=== PATIENT | male | born 1985 | race Caucasian/White ===

== ENCOUNTER 2016-03-30 18:44 | Emergency (ER) | payer SELFPAY ==
--- NOTE | 2016-03-30 20:54 | DIAGNOSTIC IMAGING REPORT ---
PROCEDURE: XR CHEST 2 VIEW INDICATION: SHORTNESS OF BREATH, initial encounter TECHNIQUE: PA and lateral view. COMPARISON: Chest x-ray 10/13/2015 FINDINGS: Lungs are clear. Cardiovascular structures are normal. Bony thorax is unremarkable. No significant interval change. IMPRESSION: 1. Negative chest.
--- NOTE | 2016-03-30 21:01 | ED ORDER SUMMARY ---
..... Patient: ROSAURA HOGAN OrderSheet [facility] VisitID: [id number] [address] [place] [address] 31y, M Registration Date/Time: 03/30/2016 ORDER SHEET Weight: 88.9 kg (stated) Allergies: No Known Drug Allergy GENERAL ORDERS: Chest 2V Urgent (20:36 03/30/2016 Maggy WEISS) (20:41 [place]) MEDICATION ORDERS: IV FLUIDS: ORDER SHEET NOTES: [Electronically signed by Raymon Vaughn R.N. (21:06 03/30/2016)] [Electronically signed by Edvin Sears MD (23:23 04/01/2016)] [Electronically locked/signed by Raymon Vaughn R.N. (21:06 03/30/2016)]
--- NOTE | 2016-03-30 21:01 | ED NURSING NOTES ---
Clinical Report - Nurses [facility] [place] [address] 03/30/2016 18:45 Patient: ROSAURA HOGAN TRIAGE Triage time 19:24. Acuity: LEVEL 4. Chief Complaint: SHORTNESS OF BREATH and COUGH. 19:28. Alert. SEPSIS SCREEN: Sepsis Screen. Negative (no infection suspected/documented). --19:28 Maxim Portillo R.N. 19:24 03/30/16. BP: 125/78. HR: 79. RR: 17. O2 saturation: 100% on room air. Temp: 97.8 F (oral). Pain level now: 0/10. --19:28 Maxim Portillo R.N. Acuity: LEVEL 3. Chief Complaint: SHORTNESS OF BREATH. --19:36 Raymon Vaughn R.N. Weight: 88.9 kg stated. Height/Length: 73 inches Per Patient. BMI: 25.9. --19:27 Maxim Portillo R.N. Medications Albuterol Sulfate Inhalation 2 puffs, PRN. --19:26 Maxim Portillo R.N. Allergies No Known Drug Allergy. --19:26 Maxim Portillo R.N. Medication/allergy information source: the patient. --19:28 Maxim Portillo R.N. Medication/allergy information source: the patient. --19:36 Raymon Vaughn R.N. History Arrived by private vehicle. Historian: patient. Accompanied by friend. Primary physician (Stu). Onset. (Friday). 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 PAST MEDICAL HX: Immunizations: up-to-date. SOCIAL HX: Never smoker. Occasional alcohol use. History of occasional drug use: marijuana. No infectious disease exposure. ABUSE ASSESSMENT: No report of abuse. FALL RISK ASSESSMENT: Fall risk assessment completed. No fall risk identified. NUTRITIONAL RISK ASSESSMENT: The nutritional risk assessment revealed no deficiencies. FUNCTIONAL ASSESSMENT: Functional assessment: no impairments noted. LEARNING NEEDS ASSESSMENT: The learning needs assessment revealed no barriers. SKIN INTEGRITY ASSESSMENT: Skin integrity risk assessment completed. No skin integrity risk identified. --19:28 Maxim Portillo R.N. ( Pt has been having sob for the past few days. Pt feels like there is mucus in the back of his throat.). 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 PAST MEDICAL HX: Immunizations: (no). SOCIAL HX: Occasional alcohol use; consumes beer occasionally. No drug use. --19:36 Raymon Vaughn R.N. PROBLEMS: Dyspnea. --19:36 Raymon Vaughn R.N. ADDITIONAL SURGERIES: Appendectomy. --19:27 Maxim Portillo R.N. Interventions ID band on patient. To waiting room. --19:28 Maxim Portillo R.N. ID band on patient. To treatment room. --19:36 Raymon Vaughn R.N. PHYSICAL ASSESSMENT ( Pt was sob a few months ago and said it was possibly asthma.). GENERAL / NEURO / PSYCH: Alert. Oriented X 4. Appears anxious. HEENT: Mucous membranes are pink. RESPIRATORY: No respiratory distress. Respirations not labored. Chest nontender. Breath sounds within normal limits. ( Pt is having sob for the past few days, but has bilateral clear lung sounds. pt appears anxious but with non labored breathing.). CVS: Normal sinus rhythm noted. Capillary refill less than 2 seconds. GI / : Abdomen soft and nontender. Bowel sounds within normal limits. SKIN: Skin is warm and dry. Normal skin turgor. --19:38 Raymon Vaughn R.N. NURSING PROGRESS NOTES The plan of care for this patient has been created. Head of bed elevated. Reassurance given. Two patient identifiers checked. Call light placed in reach. Side rails up x 1. Bed placed in lowest position. Brakes of chair on. --19:39 Raymon Vaughn R.N. 19:38 03/30/16. BP: 117/78. HR: 68. RR: 15. O2 saturation: 100%. Pain level now 0/10. --19:39 Raymon Vaughn R.N. DISPOSITION / DISCHARGE Departure time: 2104. Condition at departure: improved. ( Pt is no longer feeling sob). No learning barriers present. Discharge instructions provided and reviewed with the patient. Reviewed referrals (Dr Moore). Patient verbalized understanding. Written instructions provided in Romanian. The patient was discharged by the physician. He was discharged home and accompanied by softball player. He left the Emergency Department ambulatory and via private vehicle. Financial Services Officer driving. --21:06 Raymon Vaughn R.N. 21:05 03/30/16. BP: 124/75. HR: 81. RR: 14. O2 saturation: 100%. Pain level now 0/10. --21:06 Raymon Vaughn R.N. Locked/Released at 03/30/2016 21:06 by Raymon Vaughn R.N.
--- NOTE | 2016-03-30 21:01 | ED CLINICAL REPORT ---
Clinical Report - Physicians/Mid Levels [facility] [address] [place] [address] 03/30/2016 18:45 Patient: ROSAURA HOGAN Time Seen: 20:23. Arrived- By private vehicle. Historian- patient. HISTORY OF PRESENT ILLNESS Chief Complaint: DYSPNEA. This started 3 - 4 days ago; Centered on neck. and is still present and worsening. It has been waxing/waning. The dyspnea is described as moderate. No cough, fever, chills, dyspnea on exertion or chest pain. He has had moderate anxiety and dizziness. He has had new onset of tingling, (when nervous.). Similar symptoms previously: ( 6 MONTHS SIMILAR). REVIEW OF SYSTEMS No eye irritation, sore throat, nasal discharge, sinus drainage or nausea. No abdominal pain, diarrhea or difficulty with urination. PAST HISTORY PCP: Stu MOORE PROBLEMS: Dyspnea. --19:36 Raymon Vaughn R.N. ADDITIONAL SURGERIES: Appendectomy. SOCIAL HISTORY Former smoker. ADDITIONAL NOTES The nursing notes have been reviewed. PHYSICAL EXAM Vital Signs: 03/30/2016 19:38 BP: 117/78. HR: 68. RR: 15. O2 saturation: 100%. 03/30/2016 19:24 BP: 125/78. HR: 79. RR: 17. O2 saturation: 100%. Temp: 97.8 F. Pain level now: 0/10. Appearance: Alert. No acute distress. Anxious. Eyes: Eyes normal inspection. ENT: Pharynx normal. Neck: Normal inspection. No jugular venous distention. CVS: Normal heart rate and rhythm. Heart sounds normal. Respiratory: No respiratory distress. Breath sounds normal. Abdomen: Soft and nontender. Back: Normal inspection. Skin: Skin warm. Normal skin color. No rash. Extremities: Extremities exhibit normal ROM. No lower extremity edema. LABS, X-RAYS, AND EKG Chest X-ray: (PROCEDURE: XR CHEST 2 VIEW INDICATION: SHORTNESS OF BREATH, initial encounter TECHNIQUE: PA and lateral view. COMPARISON: Chest x-ray 10/13/2015 FINDINGS: Lungs are clear. Cardiovascular structures are normal. Bony thorax is unremarkable. No significant interval change. IMPRESSION: 1. Negative chest. Electronically Final signed by:Johny Nunn MD 03/30/2016 8:54:05 PM Technologist: JUAN). PROGRESS AND PROCEDURES Course of Care: CXR and 02 sat are excellent. Exam is normal. CLINICAL IMPRESSION Dyspnea INSTRUCTIONS (NO DANGEROUS LUNG PROBLEMS FOUND ESTABLISH PRIMARY CARE IT IS OK TO WORK). Understanding of the discharge instructions verbalized by patient. Follow-up with: Guy Moore MD, [facility], , [facility], [address] [place] [address] Follow up. Reason for referral: ESTABLISH PRIMARY CARE. (Electronically signed by Edvin Sears MD 04/01/2016 23:23)
--- NOTE | 2016-03-30 21:01 | ED CLINICAL REPORT ---
Clinical Report - Physicians/Mid Levels [facility] [address] [place] [address] 03/30/2016 18:45 Patient: ROSAURA HOGAN Time Seen: 20:23. Arrived- By private vehicle. Historian- patient. HISTORY OF PRESENT ILLNESS Chief Complaint: DYSPNEA. This started 3 - 4 days ago; Centered on neck. and is still present and worsening. It has been waxing/waning. The dyspnea is described as moderate. No cough, fever, chills, dyspnea on exertion or chest pain. He has had moderate anxiety and dizziness. He has had new onset of tingling, (when nervous.). Similar symptoms previously: ( 6 MONTHS SIMILAR). REVIEW OF SYSTEMS No eye irritation, sore throat, nasal discharge, sinus drainage or nausea. No abdominal pain, diarrhea or difficulty with urination. PAST HISTORY PCP: Stu MOORE PROBLEMS: Dyspnea. --19:36 Raymon Vaughn R.N. ADDITIONAL SURGERIES: Appendectomy. SOCIAL HISTORY Former smoker. ADDITIONAL NOTES The nursing notes have been reviewed. PHYSICAL EXAM Vital Signs: 03/30/2016 19:38 BP: 117/78. HR: 68. RR: 15. O2 saturation: 100%. 03/30/2016 19:24 BP: 125/78. HR: 79. RR: 17. O2 saturation: 100%. Temp: 97.8 F. Pain level now: 0/10. Appearance: Alert. No acute distress. Anxious. Eyes: Eyes normal inspection. ENT: Pharynx normal. Neck: Normal inspection. No jugular venous distention. CVS: Normal heart rate and rhythm. Heart sounds normal. Respiratory: No respiratory distress. Breath sounds normal. Abdomen: Soft and nontender. Back: Normal inspection. Skin: Skin warm. Normal skin color. No rash. Extremities: Extremities exhibit normal ROM. No lower extremity edema. LABS, X-RAYS, AND EKG Chest X-ray: (PROCEDURE: XR CHEST 2 VIEW INDICATION: SHORTNESS OF BREATH, initial encounter TECHNIQUE: PA and lateral view. COMPARISON: Chest x-ray 10/13/2015 FINDINGS: Lungs are clear. Cardiovascular structures are normal. Bony thorax is unremarkable. No significant interval change. IMPRESSION: 1. Negative chest. Electronically Final signed by:Johny Nunn MD 03/30/2016 8:54:05 PM Technologist: JUAN). PROGRESS AND PROCEDURES Course of Care: CXR and 02 sat are excellent. Exam is normal. CLINICAL IMPRESSION Dyspnea INSTRUCTIONS (NO DANGEROUS LUNG PROBLEMS FOUND ESTABLISH PRIMARY CARE IT IS OK TO WORK). Understanding of the discharge instructions verbalized by patient. Follow-up with: Guy Moore MD, [facility], , [facility], [address] [place] [address] Follow up. Reason for referral: ESTABLISH PRIMARY CARE. (Electronically signed by Edvin Sears MD 04/01/2016 23:23)
--- NOTE | 2016-03-30 21:01 | ED ORDER SUMMARY ---
..... Patient: ROSAURA HOGAN OrderSheet [facility] VisitID: [id number] [address] [place] [address] 31y, M Registration Date/Time: 03/30/2016 ORDER SHEET Weight: 88.9 kg (stated) Allergies: No Known Drug Allergy GENERAL ORDERS: Chest 2V Urgent (20:36 03/30/2016 Maggy WEISS) (20:41 [place]) MEDICATION ORDERS: IV FLUIDS: ORDER SHEET NOTES: [Electronically signed by Raymon Vaughn R.N. (21:06 03/30/2016)] [Electronically signed by Edvin Sears MD (23:23 04/01/2016)] [Electronically locked/signed by Raymon Vaughn R.N. (21:06 03/30/2016)]
--- NOTE | 2016-03-30 21:01 | ED NURSING NOTES ---
Clinical Report - Nurses [facility] [place] [address] 03/30/2016 18:45 Patient: ROSAURA HOGAN TRIAGE Triage time 19:24. Acuity: LEVEL 4. Chief Complaint: SHORTNESS OF BREATH and COUGH. 19:28. Alert. SEPSIS SCREEN: Sepsis Screen. Negative (no infection suspected/documented). --19:28 Maxim Portillo R.N. 19:24 03/30/16. BP: 125/78. HR: 79. RR: 17. O2 saturation: 100% on room air. Temp: 97.8 F (oral). Pain level now: 0/10. --19:28 Maxim Portillo R.N. Acuity: LEVEL 3. Chief Complaint: SHORTNESS OF BREATH. --19:36 Raymon Vaughn R.N. Weight: 88.9 kg stated. Height/Length: 73 inches Per Patient. BMI: 25.9. --19:27 Maxim Portillo R.N. Medications Albuterol Sulfate Inhalation 2 puffs, PRN. --19:26 Maxim Portillo R.N. Allergies No Known Drug Allergy. --19:26 Maxim Portillo R.N. Medication/allergy information source: the patient. --19:28 Maxim Portillo R.N. Medication/allergy information source: the patient. --19:36 Raymon Vaughn R.N. History Arrived by private vehicle. Historian: patient. Accompanied by friend. Primary physician (Stu). Onset. (Friday). 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 PAST MEDICAL HX: Immunizations: up-to-date. SOCIAL HX: Never smoker. Occasional alcohol use. History of occasional drug use: marijuana. No infectious disease exposure. ABUSE ASSESSMENT: No report of abuse. FALL RISK ASSESSMENT: Fall risk assessment completed. No fall risk identified. NUTRITIONAL RISK ASSESSMENT: The nutritional risk assessment revealed no deficiencies. FUNCTIONAL ASSESSMENT: Functional assessment: no impairments noted. LEARNING NEEDS ASSESSMENT: The learning needs assessment revealed no barriers. SKIN INTEGRITY ASSESSMENT: Skin integrity risk assessment completed. No skin integrity risk identified. --19:28 Maxim Portillo R.N. ( Pt has been having sob for the past few days. Pt feels like there is mucus in the back of his throat.). 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 PAST MEDICAL HX: Immunizations: (no). SOCIAL HX: Occasional alcohol use; consumes beer occasionally. No drug use. --19:36 Raymon Vaughn R.N. PROBLEMS: Dyspnea. --19:36 Raymon Vaughn R.N. ADDITIONAL SURGERIES: Appendectomy. --19:27 Maxim Portillo R.N. Interventions ID band on patient. To waiting room. --19:28 Maxim Portillo R.N. ID band on patient. To treatment room. --19:36 Raymon Vaughn R.N. PHYSICAL ASSESSMENT ( Pt was sob a few months ago and said it was possibly asthma.). GENERAL / NEURO / PSYCH: Alert. Oriented X 4. Appears anxious. HEENT: Mucous membranes are pink. RESPIRATORY: No respiratory distress. Respirations not labored. Chest nontender. Breath sounds within normal limits. ( Pt is having sob for the past few days, but has bilateral clear lung sounds. pt appears anxious but with non labored breathing.). CVS: Normal sinus rhythm noted. Capillary refill less than 2 seconds. GI / : Abdomen soft and nontender. Bowel sounds within normal limits. SKIN: Skin is warm and dry. Normal skin turgor. --19:38 Raymon Vaughn R.N. NURSING PROGRESS NOTES The plan of care for this patient has been created. Head of bed elevated. Reassurance given. Two patient identifiers checked. Call light placed in reach. Side rails up x 1. Bed placed in lowest position. Brakes of chair on. --19:39 Raymon Vaughn R.N. 19:38 03/30/16. BP: 117/78. HR: 68. RR: 15. O2 saturation: 100%. Pain level now 0/10. --19:39 Raymon Vaughn R.N. DISPOSITION / DISCHARGE Departure time: 2104. Condition at departure: improved. ( Pt is no longer feeling sob). No learning barriers present. Discharge instructions provided and reviewed with the patient. Reviewed referrals (Dr Moore). Patient verbalized understanding. Written instructions provided in Rwandan. The patient was discharged by the physician. He was discharged home and accompanied by ground defence officer. He left the Emergency Department ambulatory and via private vehicle. Front Office Spec driving. --21:06 Raymon Vaughn R.N. 21:05 03/30/16. BP: 124/75. HR: 81. RR: 14. O2 saturation: 100%. Pain level now 0/10. --21:06 Raymon Vaughn R.N. Locked/Released at 03/30/2016 21:06 by Raymon Vaughn R.N.
--- NOTE | 2016-04-01 23:23 | ED MED RECONCILIATION SUMMARY ---
Patient: ROSAURA HOGAN Medication Reconciliation Report [facility] VisitID: [id number] [address] [place] [address] 31y, M Registration Date/Time: 03/30/2016 Weight: 88.9 kg Height/Length: 73 in. BMI: 25.9 ALLERGIES: No Known Drug Allergy The patient's Home Medications are listed below: THE FOLLOWING MEDICATIONS NEED TO BE RECONCILED: Albuterol Sulfate Inhalation 2 puffs, PRN The source(s) of the original Home Medication information: patient The following Medications were given to the patient in the Emergency Department: None. The following Medications were prescribed to the patient: None.
--- NOTE | 2016-04-01 23:23 | ED DISCHARGE INSTRUCTIONS ---
Patient: ROSAURA HOGAN General Instructions [facility] VisitID: [id number] [place] [id number] 31y, M Registration Date/Time: 03/30/2016 Dyspnea INSTRUCTIONS (NO DANGEROUS LUNG PROBLEMS FOUND ESTABLISH PRIMARY CARE IT IS OK TO WORK). Understanding of the discharge instructions verbalized by patient. Follow-up with: Guy Moore MD, [facility] [place] [place], , [facility], [address] [place] [address] Follow up. Reason for referral: ESTABLISH PRIMARY CARE. ADDITIONAL INFORMATION Dyspnea (Shortness Of Breath) Shortness of Breath (also known as "Dyspnea") is the sense that you can't catch your breath or can't get enough air. Dyspnea can be caused by many different conditions such as: Acute asthma attack Worsening of emphysema (also called "COPD") -- a lung diseasethat is caused by smoking A mucus plug blocks a large air passage in the lung -- this can occur with emphysema or chronic bronchitis Congestive Heart Failure ("CHF") -- when a weak heart muscle allows excess fluid to collect inthe lungs Panic attacks, anxiety -- fear can cause rapid breathing ("hyperventilation") Pneumonia -- infection in the lung tissue Exposure to toxic fumes or smoke Pulmonary embolus (blood clot to the lung) Based on your visit today, the exact cause of your shortness of breath is not certain. Your tests do not show any of the serious causes of dyspnea. Sometimes, further testing is needed to find out if a serious problem exists. Therefore, it is important for you to watch for any new symptoms or worsening of your condition and follow up with your doctor as directed. Home Care: When your symptoms are better, resume your usual activities. If you smoke, you need to stop. Join a stop-smoking program or ask your doctor for help. Follow Up with your doctor or as advised by our staff. Get Prompt Medical Attention if any of the following occur: Increasing shortness of breath or wheezing Redness, pain or swelling in one leg Swelling in both legs or ankles Unexpected weight gain Chest, arm, shoulder, neck or upper back pain Dizziness, weakness or fainting Palpitations (the sense that your heart is fluttering, beating fast or hard) Fever of 100.4F (38C) or higher, or as directed by your healthcare provider Cough with dark colored or bloody sputum (mucus) You have been given the following additional information: Dyspnea (Electronically signed by Edvin Sears MD 04/01/2016 23:23)
--- NOTE | 2016-04-01 23:23 | ED MAR SUMMARY ---
..... Medication Administration Record [facility] [address] [place], [place] [id number] Patient: ROSAURA HOGAN Visit ID: [id number] 31y, M Weight: 88.9 kg Height/Length: 73 in BMI: 25.9 ALLERGIES: No Known Drug Allergy
--- NOTE | 2016-04-01 23:23 | ED MED RECONCILIATION SUMMARY ---
Patient: ROSAURA HOGAN Medication Reconciliation Report [facility] VisitID: [id number] [address] [place] [address] 31y, M Registration Date/Time: 03/30/2016 Weight: 88.9 kg Height/Length: 73 in. BMI: 25.9 ALLERGIES: No Known Drug Allergy The patient's Home Medications are listed below: THE FOLLOWING MEDICATIONS NEED TO BE RECONCILED: Albuterol Sulfate Inhalation 2 puffs, PRN The source(s) of the original Home Medication information: patient The following Medications were given to the patient in the Emergency Department: None. The following Medications were prescribed to the patient: None.
--- NOTE | 2016-04-01 23:23 | ED DISCHARGE INSTRUCTIONS ---
Patient: ROSAURA HOGAN General Instructions [facility] VisitID: [id number] [place] [id number] 31y, M Registration Date/Time: 03/30/2016 Dyspnea INSTRUCTIONS (NO DANGEROUS LUNG PROBLEMS FOUND ESTABLISH PRIMARY CARE IT IS OK TO WORK). Understanding of the discharge instructions verbalized by patient. Follow-up with: Guy Moore MD, [facility], , [facility], [address] [place] [address] Follow up. Reason for referral: ESTABLISH PRIMARY CARE. ADDITIONAL INFORMATION Dyspnea (Shortness Of Breath) Shortness of Breath (also known as "Dyspnea") is the sense that you can't catch your breath or can't get enough air. Dyspnea can be caused by many different conditions such as: Acute asthma attack Worsening of emphysema (also called "COPD") -- a lung diseasethat is caused by smoking A mucus plug blocks a large air passage in the lung -- this can occur with emphysema or chronic bronchitis Congestive Heart Failure ("CHF") -- when a weak heart muscle allows excess fluid to collect inthe lungs Panic attacks, anxiety -- fear can cause rapid breathing ("hyperventilation") Pneumonia -- infection in the lung tissue Exposure to toxic fumes or smoke Pulmonary embolus (blood clot to the lung) Based on your visit today, the exact cause of your shortness of breath is not certain. Your tests do not show any of the serious causes of dyspnea. Sometimes, further testing is needed to find out if a serious problem exists. Therefore, it is important for you to watch for any new symptoms or worsening of your condition and follow up with your doctor as directed. Home Care: When your symptoms are better, resume your usual activities. If you smoke, you need to stop. Join a stop-smoking program or ask your doctor for help. Follow Up with your doctor or as advised by our staff. Get Prompt Medical Attention if any of the following occur: Increasing shortness of breath or wheezing Redness, pain or swelling in one leg Swelling in both legs or ankles Unexpected weight gain Chest, arm, shoulder, neck or upper back pain Dizziness, weakness or fainting Palpitations (the sense that your heart is fluttering, beating fast or hard) Fever of 100.4F (38C) or higher, or as directed by your healthcare provider Cough with dark colored or bloody sputum (mucus) You have been given the following additional information: Dyspnea (Electronically signed by Edvin Sears MD 04/01/2016 23:23)
--- NOTE | 2016-04-01 23:23 | ED MAR SUMMARY ---
..... Medication Administration Record [facility] [address] [place], [place] [id number] Patient: ROSAURA HOGAN Visit ID: [id number] 31y, M Weight: 88.9 kg Height/Length: 73 in BMI: 25.9 ALLERGIES: No Known Drug Allergy
== END 2016-03-30 21:05 | disposition home or self-care (01) ==
LOC: ED SRH 18:44
DX: R06.00 Dyspnea, unspecified (principal); Z87.891 Personal history of nicotine dependence